=== PATIENT | female | born 1990 | race African-American/Black ===

== ENCOUNTER 2019-06-14 09:15 | Emergency (ER) | payer MEDICAID ==
[~2019-06-14] VITALS: Ht 152.4 cm; Wt 82.0 kg
[2019-06-14] MEDS ORDERED: ONDANSETRON HCL 4MG/2ML INJ IV STA (11:13)
[2019-06-14] MEDS ORDERED: ACETAMINOPHEN 325MG TABLET PO STA (11:13)
[2019-06-14] MEDS ORDERED: KETOROLAC 30MG/ML VIAL IV STA (11:13)
[2019-06-14] MEDS ORDERED: SODIUM CHLORIDE 0.9% 1,000 ML IV ONE ×2 (11:13→13:00)
[2019-06-14 11:42] LABS: HEMATOCRIT. 39.3 % (36.0-48.0); HEMOGLOBIN. 13.2 g/dL (12.0-16.0); MEAN CORPUSCULAR HEMOGLOBIN 30.9 pg (28.0-32.0); MEAN CORPUSCULAR VOLUME 91.8 fL (81.0-99.0); MEAN PLATELET VOLUME 10.7 fl (7.4-10.4); PLATELET 234 x1000/uL (130-400); RED BLOOD CELL COUNT 4.28 mill/uL (4.2-5.4); RED CELL DISTRIBUTION WIDTH 13.2 % (11.6-14.6)
[2019-06-14 11:58] LABS: CHLORIDE 102 mEq/L (98-107)
[2019-06-14 12:06] LABS: CLARITY URINE CLEAR (CLEAR); COLOR URINE YELLOW (YELLOW); KETONES URINE NEGATIVE (NEGATIVE); LEUKOCYTE ESTERASE URINE 1+ (NEGATIVE); NITRITE URINE NEGATIVE (NEGATIVE); OCCULT BLOOD URINE TRACE (NEGATIVE); PROTEIN URINE NEGATIVE (NEGATIVE); SPECIFIC GRAVITY URINE 1.018 (1.005-1.030); UROBILINOGEN URINE 0.2 E.U./dL (0.2-1.0)
[2019-06-14 12:47] LABS: PLATELET ESTIMATE NORMAL
[2019-06-14] MEDS ORDERED: CEFTRIAXONE 1 G PREMIX 50 ML IV ONE (13:00)
[2019-06-14 14:50] VITALS: BP 125/84
== END 2019-06-14 15:21 | disposition home or self-care (01) ==
LOC: ER 09:15
DX: B34.9 Viral infection, unspecified (principal); N30.90 Cystitis, unspecified without hematuria; Z88.0 Allergy status to penicillin; Z88.2 Allergy status to sulfonamides
CPT/HCPCS: 36415; 71045; 80053; 81003; 81025; 85025; 87086; 96365; 96366; 96375; 99284; J0696; J1885; J2405; J7030